=== PATIENT | male | born 1935 | race Caucasian/White ===

== ENCOUNTER 2018-12-29 07:24 | Emergency (ER) | payer MEDICARE, OTHER ==
[2018-12-29 07:53] VITALS: BP 138/40
--- NOTE | 2018-12-29 08:36 | EDM.PDOC ---
ED HPI GENERAL MEDICAL PROBLEM - General Chief Complaint: Respiratory Problem Stated Complaint: BRONCHITIS Time Seen by Provider: 12/29/18 08:15 Source of Information: Reports: Patient History Limitations: Reports: Other (minimal medical records) - History of Present Illness INITIAL COMMENTS - FREE TEXT/NARRATIVE: 83 yo male presents for a cough with no fever, productivity, or SOB. Is really not losing sleep over this. Had asthma as a child, not since. No chest tightness. Was seen recently in [facility] and given Tessalon without benefit. Sx's now for 3 weeks. Lives here for 3 yrs, but has no local doctor yet. Onset Date: 12/08/18 Duration: Week(s): (3) Location: Reports: Chest Quality: Reports: Other (no pain) Severity: Mild Improves with: Reports: None Worsens with: Reports: None Context: Reports: Other (see HPI) Associated Symptoms: Reports: Cough. 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 below) (none) - Related Data Allergies Allergy/AdvReac Type Severity Reaction Status Date / Time No Known Allergies Allergy Verified 12/29/18 07:54 Home Meds: Home Meds Acetaminophen [Tylenol] 650 mg PO ASDIRECTED 05/26/16 [History] Aspirin 81 mg PO BEDTIME 05/26/16 [History] Ca Carbonate/Vitamin D3/Vit K [Calcium + D Soft Chewable Tab] 1 each PO DAILY [History] Lisinopril 20 mg PO BID 05/26/16 [History] Lovastatin 60 mg PO DAILY 05/26/16 [History] Multivitamin [Multi-Vitamin Daily] 1 tab PO DAILY 05/26/16 [History] [place]-3 Fatty Acids [[place]-3] 100 mg PO DAILY 05/26/16 [History] Omeprazole Magnesium [Prilosec Otc] 20 mg PO DAILY 05/26/16 [History] amLODIPine [Norvasc] 10 mg PO DAILY 05/26/16 [History] hydroCHLOROthiazide [Hydrochlorothiazide] 25 mg PO DAILY 05/26/16 [History] Past Medical History HEENT History: Reports: Impaired Vision Cardiovascular History: Reports: Hypertension Oncologic (Cancer) History: Reports: Prostate - Infectious Disease History Infectious Disease History: Reports: MRSA - Past Surgical History Male Surgical History: Reports: Prostatectomy Musculoskeletal Surgical History: Reports: Hip Replacement, Knee Replacement Social & Family History - Tobacco Use Smoking Status *Q: Never Smoker - Caffeine Use Caffeine Use: Reports: Coffee - Recreational Drug Use Recreational Drug Use: No ED ROS GENERAL - Review of Systems Review Of Systems: See Below Constitutional: Reports: No Symptoms HEENT: Reports: Rhinitis (clear) Respiratory: Reports: Cough. Denies: Shortness of Breath, Wheezing, Pleuritic Chest Pain, Sputum, Hemoptysis Cardiovascular: Reports: No Symptoms Skin: Reports: No Symptoms Neurological: Reports: No Symptoms Psychiatric: Reports: No Symptoms ED EXAM, GENERAL - Physical Exam Exam: See Below Exam Limited By: No Limitations General Appearance: Alert, WD/WN, No Apparent Distress Eye Exam: Bilateral Eye: Normal Inspection Ears: Normal External Exam, Normal Canal, Hearing Grossly Normal, Normal TMs Ear Exam: Bilateral Ear: Auricle Normal, Canal Normal, TM normal Nose: No Blood, Clear Rhinorrhea, Other (pale nasal mucosa) Throat/Mouth: Normal Inspection, Normal Lips, Normal Oropharynx, Normal Voice, No Airway Compromise Head: Atraumatic, Normocephalic Neck: Normal Inspection Respiratory/Chest: No Respiratory Distress, Lungs Clear, Normal Breath Sounds, No Accessory Muscle Use Cardiovascular: Regular Rate, Rhythm, No Edema Extremities: Normal Inspection Neurological: Alert, Oriented, CN II-XII Intact, Normal Cognition, No Motor/ Sensory Deficits Psychiatric: Normal Affect, Normal Mood Skin Exam: Warm, Dry, Intact, Normal Color, No Rash Lymphatic: No Adenopathy Course - Vital Signs Last Recorded V/S: Last Vital Signs Temp 37.2 C 12/29/18 07:43 Pulse 96 12/29/18 07:43 Resp 18 12/29/18 07:43 BP 138/40 L 12/29/18 07:43 Pulse Ox 96 12/29/18 07:43 Departure - Departure Time of Disposition: 08:36 Disposition: Home, Self-Care 01 Condition: Good Clinical Impression: Cough Allergic rhinitis Qualifiers: Allergic rhinitis trigger: unspecified Allergic rhinitis seasonality: seasonal Qualified Code(s): J30.2 - Other seasonal allergic rhinitis - Discharge Information *PRESCRIPTION DRUG MONITORING PROGRAM REVIEWED*: No *COPY OF PRESCRIPTION DRUG MONITORING REPORT IN PATIENT CHEN: No Instructions: Allergies, Adult, [id number] Referrals: Jing Welch MD [Primary Care Provider] - Additional Instructions: Take cetirizine(Zyrtec) 10 mg every day. Use Robitussin AC as needed for cough. Get established with a family doctor near where you live and have your records sent there.
== END 2018-12-29 08:54 | disposition home or self-care (01) ==
LOC: JP.ED 07:24
DX: J30.2 Other seasonal allergic rhinitis (principal); I10 Essential (primary) hypertension; Z79.82 Long term (current) use of aspirin; Z79.899 Other long term (current) drug therapy
CPT/HCPCS: 99282